=== PATIENT | male | born 1990 | race Caucasian/White ===

== ENCOUNTER 2017-11-13 17:11 | Emergency (ER) | payer SELFPAY, OTHER ==
[2017-11-13] MEDS: NORCO, ANEXSIA 5/325MG TABLET (HYDROcodone/ACETAMINOPHEN) PO (17:55)
== END 2017-11-13 18:46 | disposition home or self-care (01) ==
LOC: M ED 17:11
DX: S80.211A Abrasion, right knee, initial encounter (principal); S93.401A Sprain of unspecified ligament of right ankle, initial encounter; S42.001A Fracture of unspecified part of right clavicle, initial encounter for closed fracture; W10.8XXA Fall (on) (from) other stairs and steps, initial encounter; Y92.89 Other specified places as the place of occurrence of the external cause; F17.210 Nicotine dependence, cigarettes, uncomplicated
CPT/HCPCS: 73030